=== PATIENT | male | born 1985 | race Caucasian/White ===

== ENCOUNTER → 2020-12-30 | Outpatient (CLI) | payer OTHER ==
--- NOTE | 2020-12-30 18:12 | REP ---
INDICATION: LOCALIZED SWELLING, MASS AND LUMP LEFT HAND COMPARISON: None. TECHNIQUE: There are four views. FINDINGS: The technologist states that the palpable lump is over the volar surface of the index finger middle phalange. There is no skeletal abnormality in this location or elsewhere. No soft tissue mass is identified on plain films. Mineralization and joint spaces are normal. There are no calcifications or foreign bodies. IMPRESSION: Essentially negative plain film study of the left hand. Follow-up imaging with MRI might be considered if felt clinically indicated. <Electronically signed by Kam Alonso > 12/30/20 [id number]
== END ==
LOC: M WUC 11:05
PROVIDERS: ATTEND Physician Assistant
DX: R22.32 Localized swelling, mass and lump, left upper limb (principal)

== ENCOUNTER → 2021-02-28 | Outpatient (REF) | payer OTHER | LOC: M LAB REF 13:49 | PROVIDERS: ATTEND Orthopaedic Surgery | DX: D48.1 Neoplasm of uncertain behavior of connective and other soft tissue (principal) ==

== ENCOUNTER → 2023-02-01 | Outpatient (CLI) | payer OTHER | LOC: M WUC 10:02 | PROVIDERS: ATTEND Nurse Practitioner Family | DX: M25.511 Pain in right shoulder (principal) ==

== ENCOUNTER 2024-08-22 17:47 | Emergency (ER) | payer OTHER ==
[~2024-08-22] VITALS: Ht 170.2 cm; Wt 62.2 kg
[2024-08-22 17:49] VITALS: O2SAT 98
[2024-08-22 19:19] VITALS: BP 119/78; TEMP 98.3
== END 2024-08-22 19:24 | disposition home or self-care (01) ==
LOC: M ED 17:47
DX: S62.501A Fracture of unspecified phalanx of right thumb, initial encounter for closed fracture (principal); Y92.019 Unspecified place in single-family (private) house as the place of occurrence of the external cause; Y93.9 Activity, unspecified; Y99.9 Unspecified external cause status; W23.0XXA Caught, crushed, jammed, or pinched between moving objects, initial encounter; F17.210 Nicotine dependence, cigarettes, uncomplicated; Z88.8 Allergy status to other drugs, medicaments and biological substances

== ENCOUNTER → 2024-08-27 | Outpatient (CLI) | LOC: M SOG 07:51 | PROVIDERS: ATTEND Physician Assistant | DX: M79.644 Pain in right finger(s) (principal); Z53.8 Procedure and treatment not carried out for other reasons ==

== ENCOUNTER → 2024-09-22 | Outpatient (CLI) | payer OTHER | LOC: M PLAIMG 11:44 | PROVIDERS: ATTEND Internal Medicine Addiction Medicine | DX: M79.644 Pain in right finger(s) (principal) ==

== ENCOUNTER 2024-12-28 11:10 | Day surgery (SDC) | payer OTHER ==
[~2024-12-28] VITALS: Ht 170.2 cm; Wt 62.0 kg
[~2024-12-28 11:10] MED LIST: LIDOCAINE 2% 100MG/5ML SDV (FOR ANES.) As Ordered ONE; MIDAZOLAM INJ 2MG/2ML VIAL As Ordered ONE; fentaNYL 100 MCG/2 ML INJECTION As Ordered ONE; propofoL 200 MG/20 ML VIAL As Ordered ONE
[2024-12-28] MEDS ORDERED: LR 1,000 ML IV SCH ×2 (11:40→15:15)
[2024-12-28] MEDS ORDERED: ceFAZolin SOD 2 GM IV ONCE IV ONE (12:40)
[2024-12-28] MEDS: ROPIvacaine 0.5% 30ML VIAL PN ONE (12:43)
[2024-12-28] MEDS: dexAMETHasone 10MG/1ML VIAL PRES.FREE PN ONE (12:43)
[2024-12-28] MEDS: fentaNYL 100 MCG/2 ML INJECTION IV PRN (12:43)
[2024-12-28] MEDS: MIDAZOLAM INJ 2MG/2ML VIAL IV PRN (12:43)
[2024-12-28] MEDS: LIDOCAINE 1% SDV 5ML VIAL PN ONE (12:43)
[2024-12-28] MEDS: ceFAZolin SODIUM 2 GM VIAL As Ordered ONE (13:30)
[2024-12-28] MEDS ORDERED: PHENYLephrine 500MCG 5ML (100MCG/ML) SYRINGE As Ordered ONE (14:28)
[2024-12-28] MEDS ORDERED: ONDANSETRON 4MG 2ML VIAL As Ordered ONE (14:41)
[2024-12-28] MEDS ORDERED: KETOROLAC 30 MG/ML 1ML VIAL As Ordered ONE (14:41)
[2024-12-28] MEDS: BACITRACIN OINTMENT 30GM TUBE As Ordered ONE (15:00)
[2024-12-28] MEDS ORDERED: fentaNYL 100 MCG/2 ML INJECTION IV PRN (15:15)
[2024-12-28] MEDS ORDERED: oxyCODONE 5MG TAB PO PRN (15:15)
[2024-12-28] MEDS ORDERED: HYDROMORPHONE HCL 0.5 MG/ 0.5 ML SYRINGE IV PRN (15:15)
[2024-12-28] MEDS ORDERED: PERC5TAB12 PO (15:23)
[2024-12-28 16:35] VITALS: BP 113/60; TEMP 97.2; O2SAT 99
== END 2024-12-28 17:00 | disposition home or self-care (01) ==
LOC: M SDC 11:10
PROVIDERS: ATTEND Orthopaedic Surgery Hand Surgery
DX: S63.641A Sprain of metacarpophalangeal joint of right thumb, initial encounter (principal); X58.XXXA Exposure to other specified factors, initial encounter; F17.210 Nicotine dependence, cigarettes, uncomplicated; Z88.6 Allergy status to analgesic agent
CPT/HCPCS: 26850; 76000; C1762; J0690; J1100; J1885; J2250; J2371; J2405; J3010

== ENCOUNTER → 2025-01-05 | Outpatient (CLI) | payer OTHER ==
[~2025-01-05] MED LIST changes: -LIDOCAINE 2% 100MG/5ML SDV (FOR ANES.) As Ordered ONE; -MIDAZOLAM INJ 2MG/2ML VIAL As Ordered ONE; +PERC5TAB12 PO; -fentaNYL 100 MCG/2 ML INJECTION As Ordered ONE; -propofoL 200 MG/20 ML VIAL As Ordered ONE
== END ==
LOC: M SOG 07:52
PROVIDERS: ATTEND Physician Assistant
DX: M79.644 Pain in right finger(s) (principal); M79.89 Other specified soft tissue disorders; Z98.890 Other specified postprocedural states; Z18.89 Other specified retained foreign body fragments

== ENCOUNTER → 2025-01-19 | Outpatient (CLI) | payer OTHER | LOC: M SOG 07:51 | PROVIDERS: ATTEND Physician Assistant | DX: M79.644 Pain in right finger(s) (principal) ==

== ENCOUNTER → 2025-02-09 | Outpatient (CLI) | payer OTHER | LOC: M SOG 07:53 | PROVIDERS: ATTEND Physician Assistant | DX: M79.644 Pain in right finger(s) (principal); Z53.9 Procedure and treatment not carried out, unspecified reason ==

== ENCOUNTER → 2025-02-26 | Outpatient (CLI) | payer OTHER | LOC: M SOG 15:38 | PROVIDERS: ATTEND Orthopaedic Surgery Hand Surgery | DX: S62.660A Nondisplaced fracture of distal phalanx of right index finger, initial encounter for closed fracture (principal); X58.XXXA Exposure to other specified factors, initial encounter; Y92.9 Unspecified place or not applicable ==